=== PATIENT | female | born 1995 | race Caucasian/White ===

== ENCOUNTER 2016-12-01 08:35 | Outpatient (CLI) | payer BC, OTHER ==
[2016-12-01 10:00] LABS: APPEARANCE,URINE SLIGHTLY-CLOUDY; BILIRUBIN,URINE NEGATIVE (NEGATIVE); GLUCOSE, URINE NEGATIVE (NEGATIVE); KETONES,URINE NEGATIVE (NEGATIVE); LEUKOCYTE ESTERASE,URINE NEGATIVE (NEGATIVE); NITRITE,URINE NEGATIVE (NEGATIVE); PROTEIN,URINE NEGATIVE (NEGATIVE); URINE SPECIFIC GRAVITY 1.011; UROBILINOGEN,URINE NEGATIVE mg/dL (<2.0)
[2016-12-01 10:24] LABS: URINE BARBITURATES SCREEN NEGATIVE; URINE METHADONE SCREEN NEGATIVE; URINE OPIATES LOW NEGATIVE; URINE PHENCYCLIDINE SCREEN NEGATIVE
--- NOTE | 2016-12-01 10:43 | Non Stress Test Report ---
Non Stress Test Datetime Report Generated by CPN: 12/01/2016 10:43 DEMOGRAPHIC EGA NST: 36.4 INDICATION Indication for Study: Ordered by Provider MONITORING Monitor Explained: Monitor Explained; Test Explained; Patient Verbalized Understanding Time on Monitor: 12/01/2016 09:42 Time off Monitor: 12/01/2016 10:25 NST Duration: 43 NST INTERVENTIONS NST Interventions: PO Hydration; Reposition Patient Physician Notified NST: Dr. Bud BABY A: [id number] BABY A Movement : Present Contraction Frequency : 0 FHR Baseline : 135 Accelerations : 15X15 Decelerations : None Variability : Moderate 6-25bpm NST Review: Meets Criteria for Reactive NST NST Review and Verified By : BENI Wright Results: Reactive NST REPORT Report Trigger: Send Report
== END 2016-12-01 10:30 | disposition home or self-care (01) ==
LOC: LC 08:35
PROVIDERS: ATTEND Specialist
PROC: 4A1HXCZ Monitoring of Products of Conception, Cardiac Rate, External Approach (ICD-10-PCS; principal; 2016-12-01)
DX: O47.03 False labor before 37 completed weeks of gestation, third trimester (principal); Z3A.36 36 weeks gestation of pregnancy
CPT/HCPCS: 59025; 80307; 81005

== ENCOUNTER 2016-12-14 10:58 | Outpatient (CLI) | payer OTHER ==
--- NOTE | 2016-12-14 11:36 | Non Stress Test Report ---
Non Stress Test Datetime Report Generated by CPN: 12/14/2016 11:35 DEMOGRAPHIC EGA NST: 38.3 INDICATION Indication for Study: Ordered by Provider Indication for Study (NST) Other: repeat nst VITAL SIGNS Temperature - NST: 97.7 Pulse - NST: 99 RESP - NST: 18 NBPSYS NST: 130 NBPDIA NST: 64 (Annotations: Data stored by CPN on behalf of user) MONITORING Monitor Explained: Monitor Explained; Test Explained; Patient Verbalized Understanding Time on Monitor: 12/14/2016 11:08 Time off Monitor: 12/14/2016 11:33 NST Duration: 25 NST INTERVENTIONS NST Interventions: None Physician Notified NST: Dr Starkey BABY A: [id number] BABY A Movement : Present Contraction Frequency : none FHR Baseline : 150 Accelerations : 15X15 Decelerations : None Variability : Moderate 6-25bpm NST Review: Meets Criteria for Reactive NST NST Review and Verified By : Ryne Goetz RN NST Results: Reactive NST REPORT Report Trigger: Send Report
== END 2016-12-14 11:37 | disposition home or self-care (01) ==
LOC: LC 10:58
PROVIDERS: ATTEND Obstetrics & Gynecology
PROC: 4A1HXCZ Monitoring of Products of Conception, Cardiac Rate, External Approach (ICD-10-PCS; principal; 2016-12-14)
DX: Z34.93 Encounter for supervision of normal pregnancy, unspecified, third trimester (principal)
CPT/HCPCS: 59025

== ENCOUNTER 2016-12-17 10:56 | Inpatient (IN) | payer BC, OTHER ==
[2016-12-22] MEDS ORDERED: DINOPROSTONE 10 MG VAGINAL INSERT.SR PV PRN (18:15)
[2016-12-22 18:46] LABS: APPEARANCE,URINE CLOUDY; BILIRUBIN,URINE NEGATIVE (NEGATIVE); GLUCOSE, URINE NEGATIVE (NEGATIVE); KETONES,URINE NEGATIVE (NEGATIVE); LEUKOCYTE ESTERASE,URINE TRACE (NEGATIVE); NITRITE,URINE NEGATIVE (NEGATIVE); PROTEIN,URINE NEGATIVE (NEGATIVE); URINE SPECIFIC GRAVITY 1.017; UROBILINOGEN,URINE NEGATIVE mg/dL (<2.0)
[2016-12-22 18:51] LABS: ABSOLUTE BASOPHILS # (AUTO) 0.1 10^3/uL (0.0-0.2); ABSOLUTE EOSINOPHILS # (AUTO) 0.1 10^3/uL (0.0-0.6); ABSOLUTE LYMPHOCYTES (AUTO) 1.9 10^3/uL (0.5-4.7); ABSOLUTE MONOCYTES (AUTO) 0.7 10^3/uL (0.1-1.4); BASOPHILS % (AUTO) 0.7 % (0-2); EOSINOPHILS % (AUTO) 0.9 % (0-6); HEMATOCRIT 31.4 % (36.0-47.0); HEMOGLOBIN 10.4 g/dL (12.0-15.5); HGB HCT DIFFERENCE -0.2; LYMPHOCYTES % (AUTO) 17.3 % (13-45); MEAN CORPUSCULAR HEMOGLOBIN 24.6 pg (27.0-33.4); MEAN CORPUSCULAR VOLUME 75 fl (80-97); MONOCYTES % (AUTO) 6.8 % (3-13); RED BLOOD COUNT 4.22 10^6/uL (3.72-5.28); RED CELL DISTRIBUTION WIDTH 16.8 % (11.5-14.0); SEGMENTED NEUTROPHILS % (AUTO) 74.3 % (42-78); WHITE BLOOD COUNT 10.7 10^3/uL (4.0-10.5)
[2016-12-22] MEDS ORDERED: DINOPROSTONE 10 MG VAGINAL INSERT.SR ONE (19:05)
[2016-12-22 19:08] LABS: URINE BARBITURATES SCREEN NEGATIVE; URINE METHADONE SCREEN NEGATIVE; URINE OPIATES LOW NEGATIVE; URINE PHENCYCLIDINE SCREEN NEGATIVE
[2016-12-23] MEDS: RINGERS SOLUTION,LACTATED 1,000 ML IV PRN ×2 (06:30→21:15)
[2016-12-23] MEDS ORDERED: MISOPROSTOL 0.1 MG TABLET PO ONE (08:15)
[2016-12-23] MEDS ORDERED: MISOPROSTOL 0.1 MG TABLET ONE ×2 (08:32→12:46)
[2016-12-23] MEDS ORDERED: DINOPROSTONE 10 MG VAGINAL INSERT.SR ONE (18:49)
[2016-12-24] MEDS ORDERED: OXYTOCIN/NORMAL SALINE 20 UNIT/1,000 ML RTUINJ ONE (10:16)
[2016-12-24] MEDS ORDERED: NALBUPHINE HCL INJ 10 MG/1 ML AMPULE ONE ×2 (10:16→13:58)
--- NOTE | 2016-12-24 11:19 | L&D Progress Notes ---
PROGRESS NOTES Datetime Report Generated by CPOwen: 12/24/2016 11:19 PROGRESS NOTE Impression: Normal Progression of Labor; Reassuring Heart Rate Procedures: Sterile Vag Exam Plan: Continue Present Management; Induction Informed Consent Obtained: Vaginal Delivery; Induction of Labor; Risks, Benefits and Alternatives Discussed Vital Signs : Within Normal Limits Comment: Pt has been IOL for A1GDM since 12/22 with cervidil placed and then no cervical change on 12/23 and cytotec given throughout the day. Cervidil given again last evening due to cvx unchanged and closed per report. Upon evaluation this am cvx 03/13/-3/post/med/to left and reviewed options for management. Cooks catheter placed and pt tolerated well. Nubain given for pain. Pt desires epidural at some point. Anesthesia notified of BMI and will eval with epidural when pt requests. EFW approx 8# - exam limited by habitus. no recent growth US in chart. CAT I FHR tracing. Reassuring FWB. WIll do Low dose pitocin with Cooks catheter. VAGINAL EXAM Dilatation: 1 Dilatation: 0 Effacement: 25 Effacement: 0 Station: -3 Station: -3 Contractions: irreg MEMBRANES Pooling: Negative Membranes: Intact Membranes: Intact FETUS A FHR - Baseline: 155 Monitoring: External US Variability: Moderate 6-25bpm Accelerations: 15X15 Decelerations: None FHR Category: Category I : 39.4 Estimated Weight (gm): 3900 Presentation: Vertex SIGNATURE SIGNATURE: [id number];[id number] SIGNATURE: [id number] SIGNATURE: [id number] SIGNATURE: [id number] Signature: with User ID: [email or web address]
--- NOTE | 2016-12-24 18:44 | L&D Progress Notes ---
PROGRESS NOTES Datetime Report Generated by SHAYY: 12/24/2016 18:44 PROGRESS NOTE Impression: Normal Progression of Labor; Reassuring Heart Rate Procedures: Sterile Vag Exam Plan: Continue Present Management; Induction; Cervical Ripening Informed Consent Obtained: Vaginal Delivery; Section Delivery; Induction of Labor; Risks, Benefits and Alternatives Discussed Vital Signs : Reviewed; Within Normal Limits Comment: 21yo at 39+6ega presented on 12/22/2016 for IOL due to A1GDM. TEDs/SCDs placed this am. BMI 46 - maternaly obesity. Cervidil placed on 12/22 overnight then cytotec during the day on 12/23. On 12/23 in evening cervidil placed again due to cervical dilation closed. Upon evaluation at my arrival this am 1cm and reviewed options with pt and cooks catheter placed. Pt has been on low dose pitocin since Cooks catheter placed at approx 1000 this am. Cvx exam now and both bulbs are out of cervix. Cooks catheter removed and cvx 4-5/50/-3. EFW on 12/18 was 7#15oz. Pelvis is unproven. No e/o active labor at this time. reviewed with pt plan for stop pitocin for pitocin break and allow to ambulate and eat. Then plan to restart pitocin in approx 2 hours to continue with cervical ripening. Reviewed with pt plan to not AROM until baby descends and closer to active labor. Pt and family verbalized understanding. VAGINAL EXAM Dilatation: 4 Effacement: 50 Station: -3 Contractions: irregular q 2 to 5 MEMBRANES Membranes: Intact FETUS A R - Baseline: 145 Monitoring: External US Variability: Moderate 6-25bpm Accelerations: 15X15 Decelerations: None FHR Category: Category I FETUS C SIGNATURE: [id number];[id number] Signature: with User ID: [email or web address]
--- NOTE | 2016-12-25 02:23 | L&D Progress Notes ---
PROGRESS NOTES Datetime Report Generated by SHAYY: 12/25/2016 02:23 PROGRESS NOTE Impression: Normal Progression of Labor Procedures: Sterile Vag Exam Plan: Continue Present Management; Induction; Cervical Ripening Informed Consent Obtained: Vaginal Delivery; Induction of Labor; Risks, Benefits and Alternatives Discussed Vital Signs : Reviewed; Within Normal Limits Comment: Pt with A1GDM and here since 12/22 evening for IOL. Cooks catheter came out at approx 1900 and pt has been on pitocin alone since then. Pt has been intermittently ambulating. Pitocin break taken when cooks catheter came out. Cvx now more mid position (was very posterior and to the left) however patient is still not in active labor. Membranes intact currently. GBS negative. Reviewed with patient plan for pitocin break one more time and during pitocin break allow to ambulate and will give 250ml D5LR and then restart pitocin at 10 and increase per protocol. Ok to have ambien as well - pt has had a prolonged IOL and not resting. reviewed with pt that hopefully after this baby will descend further and allow AROM safely and assist with entering active labor. REviewed concerns that baby could be too large for pelvis (although baby was only 7#15oz on 12/18) and section may be needed. Reassuring FWB at this time. EFW 7#15oz on 12/18 and pelvis feels adequate. VAGINAL EXAM Dilatation: 4 Effacement: 50 Station: -3 Contractions: q 1-4 FETUS A FHR - Baseline: 135 FETUS C SIGNATURE: [id number];14,[id number] Signature: with User ID: [email or web address]
[2016-12-25] MEDS ORDERED: ZOLPIDEM TARTRATE 5 MG TABLET PO ONE (02:40)
[2016-12-25] MEDS ORDERED: ZOLPIDEM TARTRATE 5 MG TABLET ONE (03:08)
--- NOTE | 2016-12-25 08:12 | L&D Progress Notes ---
PROGRESS NOTES Datetime Report Generated by CPN: 12/25/2016 08:12 PROGRESS NOTE Impression: Normal Progression of Labor Procedures: Artificial ROM; Sterile Vag Exam Plan: Continue Present Management; Induction Informed Consent Obtained: Vaginal Delivery; Induction of Labor; Risks, Benefits and Alternatives Discussed Vital Signs : Reviewed; Within Normal Limits Comment: D/w pt plan of care and need to achieve active labor. AROM performed and patient is aware that this now is a time clock. GBS negative. EFW 7#15oz on last eval. Pt is aware that if not able to achieve active labor that section would be indicated. Pt will notify nursing when she desires epidural VAGINAL EXAM Dilatation: 4 Effacement: 50 Station: -3 Contractions: q 2-6 MEMBRANES Membranes: Ruptured FETUS A FHR - Baseline: 135 Monitoring: External US Variability: Moderate 6-25bpm Accelerations: 15X15 Decelerations: Variable FHR Category: Category I FETUS C SIGNATURE: [id number];[id number] Signature: with User ID: [email or web address]
[2016-12-25] MEDS ORDERED: ONDANSETRON HCL INJ/PF 4 MG/2 ML SDV ONE ×3 (09:44→19:57)
[2016-12-25 11:38] LABS: ABSOLUTE BASOPHILS # (AUTO) 0.1 10^3/uL (0.0-0.2); ABSOLUTE LYMPHOCYTES (AUTO) 1.3 10^3/uL (0.5-4.7); ABSOLUTE MONOCYTES (AUTO) 0.7 10^3/uL (0.1-1.4); ABSOLUTE NEUT (AUTO) 11.1 10^3/uL (1.7-8.2); BASOPHILS % (AUTO) 0.7 % (0-2); EOSINOPHILS % (AUTO) 0.2 % (0-6); HEMATOCRIT 33.3 % (36.0-47.0); HGB HCT DIFFERENCE -0.3; LYMPHOCYTES % (AUTO) 9.6 % (13-45); MEAN CORPUSCULAR HEMOGLOBIN 24.6 pg (27.0-33.4); MEAN CORPUSCULAR HGB CONC 33.1 g/dL (32.0-36.0); MEAN CORPUSCULAR VOLUME 74 fl (80-97); MONOCYTES % (AUTO) 5.4 % (3-13); RED BLOOD COUNT 4.48 10^6/uL (3.72-5.28); RED CELL DISTRIBUTION WIDTH 16.9 % (11.5-14.0); SEGMENTED NEUTROPHILS % (AUTO) 84.1 % (42-78); WHITE BLOOD COUNT 13.2 10^3/uL (4.0-10.5)
[2016-12-25] MEDS ORDERED: EPHEDRINE SULFATE INJ 50 MG/1 ML AMPULE ONE (11:51)
[2016-12-25] MEDS ORDERED: FENTANYL CITRATE INJ/PF 100 MCG/2 ML AMPUL ONE ×3 (11:51→22:13)
[2016-12-25] MEDS ORDERED: BUPIVACAINE HCL 0.25 % INJ/PF (2.5 MG/1 ML) 30 ML VIAL ONE (11:52)
[2016-12-25] MEDS ORDERED: PHENYLEPHRINE HCL INJ/PF 10 MG/1 ML SDV ONE (11:52)
[2016-12-25] MEDS ORDERED: FENTANYL/BUPIVACAINE/NS/PF 200 MCG/100 ML RTUINJ EPI ONE (11:52)
--- NOTE | 2016-12-25 12:02 | L&D Progress Notes ---
PROGRESS NOTES Datetime Report Generated by CPN: 12/25/2016 12:01 PROGRESS NOTE Comment: OOB in BR, requesting epidural, Cat 1 strip FETUS C SIGNATURE: [id number];14,[id number] Assignment: Debbie Raymond MD Signature: with User ID: [email or web address] : with User ID: [email or web address]
[2016-12-25] MEDS ORDERED: OXYTOCIN/NORMAL SALINE 20 UNIT/1,000 ML RTUINJ ONE ×2 (12:40→19:57)
--- NOTE | 2016-12-25 15:18 | L&D Progress Notes ---
PROGRESS NOTES Datetime Report Generated by CPN: 12/25/2016 15:17 PROGRESS NOTE Plan: Continue Present Management Comment: Irreg uc's, Cat 1, comfortable with epidural FETUS A FHR - Baseline: 140 Variability: Moderate 6-25bpm Accelerations: 15X15 FHR Category: Category I : 39.5 FETUS C SIGNATURE: [id number];[id number] Assignment: Debbie Raymond MD Signature: with User ID: Goldie : with User ID: [email or web address]
[2016-12-25] MEDS ORDERED: METOCLOPRAMIDE HCL INJ/PF 10 MG/2 ML SDV ONE (17:32)
[2016-12-25] MEDS ORDERED: FAMOTIDINE INJ/PF 20 MG/2 ML SDV IV ONE (17:32)
[2016-12-25] MEDS ORDERED: CITRIC ACID/SODIUM CITRATE ORAL SOLN 15 ML UDCUP ONE (17:32)
[2016-12-25] MEDS ORDERED: SODIUM BICARBONATE 8.4% INJ 50 MEQ/50 ML DISP.SYRIN ONE ×2 (17:32→20:09)
[2016-12-25] MEDS ORDERED: LIDOCAINE 1.5%/EPINEPHRINE INJ-PF 30 ML SDV ONE (17:34)
[2016-12-25] MEDS ORDERED: AZITHROMYCIN INJ 500 MG VIAL IV ONE ×2 (19:44→19:52)
[2016-12-25] MEDS ORDERED: SIMETHICONE 80 MG TAB.CHEW PO PRN (19:48)
[2016-12-25] MEDS ORDERED: RINGERS SOLUTION,LACTATED 1,000 ML IV PRN (19:48)
[2016-12-25] MEDS ORDERED: OXYCODONE-ACETAMINOPHEN 5-325 MG TABLET PO PRN (19:48)
[2016-12-25] MEDS ORDERED: ACETAMINOPHEN 100 ML IV PRN (19:48)
[2016-12-25] MEDS ORDERED: DIPH/PERTUSS(ACELL)/TETANUS VAC/PF 0.5 ML SYR (>=10YO) IM PRN (19:48)
[2016-12-25] MEDS ORDERED: OXYTOCIN/NORMAL SALINE 20 UNIT/1,000 ML RTUINJ IV PRN (19:48)
[2016-12-25] MEDS ORDERED: PROMETHAZINE HCL INJ 25 MG/1 ML VIAL IV PRN (19:48)
[2016-12-25] MEDS ORDERED: HYDROMORPHONE HCL INJ/PF 2 MG/ML AMPULE IV PRN (19:48)
[2016-12-25] MEDS ORDERED: ACETAMINOPHEN 325 MG TABLET PO PRN (19:48)
[2016-12-25] MEDS ORDERED: MEASLES,MUMPS&RUBELLA VACC/PF 0.5 ML VIAL SUBCUT PRN (19:48)
[2016-12-25] MEDS ORDERED: CITRIC ACID/SODIUM CITRATE ORAL SOLN 15 ML UDCUP PO PRN (19:54)
[2016-12-25] MEDS ORDERED: OXYTOCIN 10 UNIT/ML VIAL ONE (19:57)
[2016-12-25] MEDS ORDERED: MISOPROSTOL 0.2 MG TABLET ONE (20:03)
[2016-12-25] MEDS ORDERED: BUPIVACAINE HCL 0.5 % INJ/PF 30 ML SDV ONE (20:09)
[2016-12-25] MEDS ORDERED: ACETAMINOPHEN 100 ML IV ONE (20:48)
[2016-12-25] MEDS ORDERED: MIDAZOLAM 2 MG/2 ML INJ ONE (20:54)
--- NOTE | 2016-12-25 21:23 | Operative Report ---
Operative Report DATE OF SURGERY: 12/25/16 PREOPERATIVE DIAGNOSIS: Failure to progress POSTOPERATIVE DIAGNOSIS: Same plus persistent occiput posterior OPERATION: Primary for low transverse uterine incision SURGEON: GALE REDDY ANESTHESIA: Epidural TISSUE REMOVED OR ALTERED: Placenta COMPLICATIONS: None ESTIMATED BLOOD LOSS: 250 cc INTRAOPERATIVE FINDINGS: Viable baby girl Apgars 8 9 direct OP presentation. Normal uterus tubes and ovaries PROCEDURE: Ms. Napier has progressed approximately 5 cm and not changed beyond this for several hours despite Pitocin at 30 mU/min and a intrauterine pressure catheter. Because of the failure to progress we elected to proceed with section. Patient was taken to the OR and placed in supine position after her spinal anesthesia. She is prepared and draped in sterile fashion. Alford was placed for drainage of the bladder. Low transverse incision was made and carried down the level of the fascia. The fascial incision was made with knife and extended bilaterally with curved Faustin scissors. The fascia was off the rectus muscles using sharp and blunt dissection. The rectus muscles are in the midline. The peritoneum was entered without incident. Bladder blade was placed in uterine segment was identified. A low transverse incision was made creating a bladder flap. Bladder blade was placed low transverse uterine incision was made with the csafe knife and extended with fingertips. The baby was delivered with some fundal pressure. Mouth and nose were suctioned free. The cord is doubly clamped and cut. Baby is passed off to the field marketing specialist in attendance. The placenta was manually extracted with trailing membranes. The uterus was externalized wrapped in a moist lap sponge. Uterine contents wiped free. Uterus was closed with a running locking layer of 0 chromic suture using the second layer to imbricate the first completing a double layer closure of the uterus. The serosa was closed with a running 2-0 chromic stitch. The pelvis was irrigated and suctioned free of fluid the uterus was replaced in the abdomen. The abdominal wall peritoneum was closed with running 2-0 chromic stitch. Fascia was closed with a running 0 Vicryl in 2 segments. Alda's layer was brought together with 0 plain gut stitch and the skin was closed with running subcuticular 4-0 undyed Vicryl stitch. The wound was dressed mother and baby did well.
[2016-12-25] MEDS ORDERED: KETOROLAC TROMETHAMINE INJ/PF 30 MG/1 ML SDV IV SCH (22:00)
[2016-12-25] MEDS ORDERED: IBUPROFEN 800 MG TABLET ONE (22:56)
--- NOTE | 2016-12-25 23:28 | Admission Physical ---
Datetime Report Generated by CPN: 12/25/2016 23:27 CURRENT ADMISSION Chief Complaint: Scheduled Induction of Labor Indication for Induction: Maternal Diabetes Indication for Induction: Induction of Labor Admit Plan: Admit to Unit; Initiate Labor Induction Protocol ALLERGIES Medication Allergies: Yes Medication Allergies: cephalexin/Hives (12/23/2016) Medication Allergies: cephalexin/Hives (12/18/2016) Medication Allergies: cephalexin (12/01/2016) Latex: No Latex Allergies Food Allergies: n/a Environmental Allergies: n/a OBSTETRICAL HISTORY EDC: 12/25/2016 00:00 : 1 Para: 0 Term: 0 : 0 SAB: 0 IAB: 0 Ectopic: 0 Livin Cesareans: 0 VBACs: 0 Multiple Births: 0 Gestational Diabetes: Yes Rh Sensitization: No Incompetent Cervix: No MARU: No Infertility: No ART Treatment: No Uterine Anomaly: No IUGR: No Hx Previous C/S: No Macrosomia: No Hx Loss/Stillborn: No PIH: No Hx : No Placenta Previa/Abruption: No Depression/PP Depression: No PTL/PROM: No Post Hemorrhage: No Current Procedures: Ultrasound Obstetrical History Comments: G1- Current GDM diet controlled SEE RECORDS Alcohol: No Marijuana : No Cocaine: No Other Illicit Drugs: No Cigarettes: Never Smoker. [id number] MEDICAL HISTORY Diabetes: Yes Diabetes Type: Gestational Diabetes Blood Transfusion: No Pulmonary Disease (Asthma, TB): Yes Breast Disease: No Hypertension: No Optomechanical Engineer Surgery: No Heart Disease: No Hosp/Surgery: Yes Autoimmune Disorder: No Anesthetic Complications: No Kidney Disease: No Abnormal Pap Smear: No Neuro/Epilepsy: No Psychiatric Disorders: No Other Medical Diseases: No Hepatitis/Liver Disease: No Significant Family History: No Varicosities/Phlebitis: No Trauma/Violence : No Thyroid Dysfunction: No Medical History Comments: Childhood exercised induced asthma appendectomy age 13 INFECTIOUS HISTORY Gonorrhea: No Genital Herpes: No Chlamydia: No Tuberculosis: No Syphilis: No Hepatitis: No HIV/AIDS Exposure: No Rash or Viral Illness: No HPV: No PHYSICAL EXAM General: Normal HEENT: Normal Neurologic: Normal Thyroid: Normal Heart: Normal Lungs: Normal Breast: Normal Back: Normal Abdomen: Normal Genitourinary Exam: Normal Extremities: Normal DTRs: Normal Pelvic Type: Adequate Vital Signs: Reviewed VAGINAL EXAM Dilatation: 4 Dilatation: 4 Dilatation: 4 Dilatation: 1 Dilatation: 0 Effacement: 50 Effacement: 50 Effacement: 50 Effacement: 25 Effacement: 0 Station: -3 Station: -3 Station: -3 Station: -3 Station: -3 Contraction Comments: q 2-6 Contraction Comments: q 1-4 Contraction Comments: irregular q 2 to 5 Contraction Comments: irreg MEMBRANES Pooling: Negative Membranes: Ruptured Membranes: Intact Membranes: Intact Membranes: Intact FETUS A EGA: 39.4 Monitoring: External US FHR- Baseline: 130 Variability: Moderate 6-25bpm Accelerations: 15X15 Decelerations: None FHR Category: Category I Estimated Weight (gm): 3900 Presentation: Vertex PLANS FOR LABOR AND DELIVERY Labor and Delivery: Plan Pain Management: Medications Feeding Preference: Breast Benefit of Breast Feed Discussed: Yes Circumcision: N/A INFORMED CONSENT Informed Consent Obtained: Vaginal Delivery; Induction of Labor; Risks, Benefits and Alternatives Discussed Informed Consent Obtained: Vaginal Delivery; Induction of Labor; Risks, Benefits and Alternatives Discussed Informed Consent Obtained: Vaginal Delivery; Section Delivery; Induction of Labor; Risks, Benefits and Alternatives Discussed Informed Consent Obtained: Vaginal Delivery; Induction of Labor; Risks, Benefits and Alternatives Discussed Signature: with User ID: [email or web address]
--- NOTE | 2016-12-25 23:43 | Delivery Summary ---
Del Sum A-C Datetime Report Generated by CPN: 12/25/2016 23:43 DELIVERY PERSONNEL DELIVERY PERSONNEL: [id number] Delivery Doctor:: Debbie Raymond MD INSURANCE PROFESSIONAL:: Willi Israel INSURANCE PROFESSIONAL Labor and Delivery Nurse:: Natalie Ron RNmeasurement psychologist Nurse:: Jaimee Faria RN Nursery Nurse:: Samaria Sarah RN Projection Camera Operator/SEXUAL ASSAULT COUNSELLOR: Magaly Bangura, FIELD ASSOCIATE Projection Camera Operator/SEXUAL ASSAULT COUNSELLOR: Alesha Warner, ST Additional Personnel: : Adalberto Graham, SEXUAL ASSAULT COUNSELLOR MATERNAL INFORMATION Delivery Anesthesia: Epidural Medications After Delivery: Pitocin Drip 20 Units/1000ml NSS Estimated Blood Loss (ml): 600 Maternal Complications: Other Other Maternal Complications: failed induction LABOR SUMMARY EDC: 12/25/2016 00:00 No. Babies in Womb: 1 Attempted: No Labor Anesthesia: Epidural LABOR INFORMATION Cervical Ripening Agents: Cervidil Other Ripening Agents: cervidil removed Oxytocin: Induction Group B Beta Strep: Negative Antibiotics # of Doses: N/A Antibiotics Time of Last Dose: N/A Name of Antibiotic Given: N/A Steroids Given: None Reason Steroids Not Administered: Not Applicable MEMBRANES Membranes Rupture Method: Artificial Rupture of Membranes: 12/25/2016 08:01 Length of Rupture (hr): 12.68 Amniotic Fluid Color: Clear Amniotic Fluid Amount: Moderate Amniotic Fluid Odor: Normal STAGES OF LABOR Stage 3 hr: 0 Stage 3 min: 0 VAGINAL DELIVERY Episiotomy: None Laceration #1: None Laceration Extension #1: N/A Laceration Repair: Not Applicable Sponge Count Correct: Yes Sharps Count Correct: Yes CSECTION DELIVERY Primary Indication: Failed Induction Secondary Indication: Failure to progress CSection Urgency: Non-Scheduled CSection Incidence: Primary Labor: Labor Elective: Nonelective CSection Incision: Lower Uterine Transverse BABY A INFORMATION Infant Delivery Date/Time: 12/25/2016 20:42 Method of Delivery: Born in Route : No : N/A Forceps: N/A Vacuum Extraction: N/A Shoulder Dystocia : No PRESENTATION/POSITION BABY A Presentation: Cephalic Breech Presentation: N/A PLACENTA INFORMATION BABY A Placenta Delivery Time : 12/25/2016 20:42 Placenta Method of Delivery: Expressed Placenta Status: Delivered SCORES BABY A Heart Rate 1 min: >100 bpm Resp Effort 1 min: Good Cry Reflex Irritability 1 min: Cough or Sneeze or Pulls Away Muscle Tone 1 min: Active Motion Color 1 min: Blue/Pale SCORE 1 MIN: 8 Heart Rate 5 min: >100 bpm Resp Effort 5 min: Good Cry Reflex Irritability 5 min: Cough or Sneeze or Pulls Away Muscle Tone 5 min: Active Motion Color 5 min: Body [place], Extremities Blue SCORE 5 MIN: 9 INFANT INFORMATION BABY A Gestational Age at Delivery: 40.0 Gestational Status: Full Term- 39- 40.6 Weeks Infant Outcome : Liveborn Infant Condition : Stable Sex: Female IDENTIFICATION BABY A Infant Verification Date/Time: 12/25/2016 20:55 ID Band Number: [id number] Mother's Name Verified: Yes RN Verifying : B Jayson, RN Additional Verifying Personnel: R Ertel, SEXUAL ASSAULT COUNSELLOR WEIGHT/LENGTH BABY A Infant Birthweight (gm): 3490 Infant Weight (lb): 7 Infant Weight (oz): 11 Infant Length (in): 20.50 Infant Length (cm): 52.07 CORD INFORMATION BABY A No. Cord Vessels: 3 Nuchal Cord : N/A Cord Blood Taken: Yes-For Eval (Mom's Blood Type - or O+) Suction: Mouth; Nose ASSESSMENT BABY A Skin to Skin: Yes Skin to Skin Time (min): 60 Care By: Samaria Bryant RN Transferred To: Nursery BABY B INFORMATION : N/A
[2016-12-26] MEDS: RINGERS SOLUTION,LACTATED 1,000 ML IV PRN ×3 (00:32→09:59)
[2016-12-26] MEDS: OXYCODONE-ACETAMINOPHEN 5-325 MG TABLET PO PRN ×3 (00:42→19:50)
[2016-12-26] MEDS: KETOROLAC TROMETHAMINE INJ/PF 30 MG/1 ML SDV IV SCH ×3 (05:48→21:40)
[2016-12-26] MEDS ORDERED: RINGERS SOLUTION,LACTATED 500 ML IV ONE (06:30)
[2016-12-26 07:47] LABS: HEMATOCRIT 23.9 % (36.0-47.0); HGB HCT DIFFERENCE -0.2; MEAN CORPUSCULAR HEMOGLOBIN 24.8 pg (27.0-33.4); MEAN CORPUSCULAR HGB CONC 32.9 g/dL (32.0-36.0); MEAN CORPUSCULAR VOLUME 75 fl (80-97); RED BLOOD COUNT 3.18 10^6/uL (3.72-5.28); RED CELL DISTRIBUTION WIDTH 17.1 % (11.5-14.0); WHITE BLOOD COUNT 11.5 10^3/uL (4.0-10.5)
[2016-12-26 07:52] LABS: HEMOGLOBIN 7.9 g/dL (12.0-15.5)
[2016-12-26] MEDS: DOCUSATE SODIUM 100 MG CAPSULE PO SCH ×2 (09:57→17:53)
[2016-12-26] MEDS: PRENATAL VITAMIN W-O CA NO5/FE FUMARATE/FA CAPSULE PO SCH (09:57)
--- NOTE | 2016-12-26 11:07 | PDOC PROGRESS REPORT ---
Subjective-OB Subjective: Post Delivery Day: 21 year old. Denies any needs at this time. Pt doing well, denies pain. Has not been OOB yet. Reports normal bleeding and regular diet. Physical Exam (OB) Vital Signs: Temp Pulse Resp BP Pulse Ox 98.5 F 73 20 123/55 L 97 12/26/16 08:02 12/26/16 08:02 12/26/16 08:02 12/26/16 08:02 12/26/16 08:02 Intake & Output 12/25/16 12/26/16 12/27/16 06:59 06:59 06:59 Output Total 425 Balance -425 - Dressing Removed: No Incision: Dressing - Lochia Lochia Amount: Small 10-25 ml Lochia Color: Rubra/Red - Abdomen Description: Soft, Round Hernia Present: No Fundal Description: Firm, Midline Fundal Height: u/u - u/2 Objective-Diagnostic Laboratory: 12/26/16 06:52 12/25/16 12/25/16 12/26/16 11:27 11:27 06:52 WBC 13.2 H 11.5 H RBC 4.48 3.18 L Hgb 11.0 L 7.9 L D Hct 33.3 L 23.9 L MCV 74 L 75 L MCH 24.6 L 24.8 L MCHC 33.1 32.9 RDW 16.9 H 17.1 H Plt Count 304 254 Seg Neutrophils % 84.1 H Lymphocytes % 9.6 L Monocytes % 5.4 Eosinophils % 0.2 Basophils % 0.7 Absolute Neutrophils 11.1 H Absolute Lymphocytes 1.3 Absolute Monocytes 0.7 Absolute Eosinophils 0.0 Absolute Basophils 0.1 Blood Type B NEGATIVE Antibody Screen NEGATIVE 12/26/16 06:52 WBC RBC Hgb Hct MCV MCH MCHC RDW Plt Count Seg Neutrophils % Lymphocytes % Monocytes % Eosinophils % Basophils % Absolute Neutrophils Absolute Lymphocytes Absolute Monocytes Absolute Eosinophils Absolute Basophils Blood Type B NEGATIVE Antibody Screen Assessment and Plan(PN) - Assessment and Plan (1) delivery delivered Is this a current diagnosis for this admission?: Yes - Time Spent with Patient Time with patient: Less than 15 minutes Medications reviewed and adjusted accordingly: Yes - Disposition Anticipated Discharge: Home Within: within 48 hours
[2016-12-26] MEDS ORDERED: IBUPROFEN 800 MG TABLET PO SCH (18:00)
[2016-12-27] MEDS: IBUPROFEN 800 MG TABLET PO SCH ×3 (05:17→17:05)
[2016-12-27] MEDS: OXYCODONE-ACETAMINOPHEN 5-325 MG TABLET PO PRN ×2 (08:22→17:05)
[2016-12-27] MEDS: PRENATAL VITAMIN W-O CA NO5/FE FUMARATE/FA CAPSULE PO SCH (10:14)
[2016-12-27] MEDS: DOCUSATE SODIUM 100 MG CAPSULE PO SCH ×2 (10:14→17:05)
--- NOTE | 2016-12-27 12:51 | PDOC PROGRESS REPORT ---
Subjective-OB Subjective: Post Delivery Day: 21 year old. Denies any needs at this time. Requesting discharge later today. Physical Exam (OB) Vital Signs: Temp Pulse Resp BP Pulse Ox 98.1 F 79 16 120/67 98 12/27/16 08:59 12/27/16 08:59 12/27/16 08:59 12/27/16 07:42 12/27/16 08:59 Intake & Output 12/26/16 12/27/16 12/28/16 06:59 06:59 06:59 Intake Total 2500 300 Output Total 425 Balance -425 2500 300 - Dressing Removed: No Incision: Dressing, Well Approximated - Lochia Lochia Amount: Scant < 10 ml Lochia Color: Rubra/Red - Abdomen Description: Soft, Round Hernia Present: No Bowel Sounds: Normoactive Flatus Presence: Present Stool: No Fundal Description: Firm, Midline Fundal Height: u/u - u/2 Objective-Diagnostic Laboratory: 12/26/16 06:52 12/26/16 06:52 Blood Type B NEGATIVE Assessment and Plan(PN) - Time Spent with Patient Medications reviewed and adjusted accordingly: Yes - Disposition Anticipated Discharge: Home
--- NOTE | 2016-12-27 13:04 | PDOC DISCHARGE SUMMARY ---
Final Diagnosis Discharge Date: 12/27/16 - Final Diagnosis (1) delivery delivered Is this a current diagnosis for this admission?: Yes (2) Failure to progress in labor Is this a current diagnosis for this admission?: Yes (3) GDM (gestational diabetes mellitus) Is this a current diagnosis for this admission?: Yes (4) Obesity Is this a current diagnosis for this admission?: Yes Discharge Data - Discharge Medication Home Medications: Vit/Iron Fum/Folic AC [ Tablet] 1 each PO DAILY 12/01/16 Docusate Sodium [Colace 100 mg Capsule] 100 mg PO BID #30 capsule 12/27/16 Ferrous Sulfate 325 mg PO BID #60 tablet. 12/27/16 Ibuprofen [Motrin 800 mg Tablet] 800 mg PO Q6 #30 tablet 12/27/16 Oxycodone HCl/Acetaminophen [Percocet 5-325 mg Tablet] 1 tab PO Q4HP PRN #20 tablet 12/27/16 Gestational Age: 39 wks Reason(s) for Admission: Induction of Labor, Gestional Diabetes Procedures: Ultrasound Intrapartum Procedure(s): : Low Cervical, Transverse - Data Baby 1 Female at 1 minute: 8 at 5 minutes: 9 Weight: 3.487 kg Home with Mother: Yes Complications: No - Diagnosis Test Laboratory: Temp Pulse Resp BP Pulse Ox 98.1 F 79 16 120/67 98 12/27/16 08:59 12/27/16 08:59 12/27/16 08:59 12/27/16 07:42 12/27/16 08:59 12/22/16 12/22/16 12/25/16 18:21 18:39 11:27 RBC 4.22 4.48 Hgb 10.4 L 11.0 L Hct 31.4 L 33.3 L Urine Opiates Screen NEGATIVE 12/26/16 06:52 RBC 3.18 L Hgb 7.9 L D Hct 23.9 L Urine Opiates Screen - Discharge information/Instructions Discharge Activity: Activity As Tolerated, Balance Activity w/Rest, No Driving, No Lifting Over 10 Pounds, No Lifting/Push/Pulling, Pelvic Rest, Slowly Increase Activity, No tub bath Discharge Diet: Regular Disposition: HOME, SELF-CARE Follow up with: [facility] in: 1, Weeks
[2016-12-27 16:42] VITALS: BP 118/61
== END 2016-12-27 18:13 | disposition home or self-care (01) | DRG 765 ==
LOC: LR 12-22 18:13 → 2S 12-25 23:20
PROVIDERS: ADMIT Obstetrics & Gynecology; ATTEND Obstetrics & Gynecology
PROC: 10D00Z1 Extraction of Products of Conception, Low, Open Approach (ICD-10-PCS; principal; 2016-12-25)
PROC: 3E0234Z Introduction of Serum, Toxoid and Vaccine into Muscle, Percutaneous Approach (ICD-10-PCS; 2016-12-27)
PROC: 3E0234Z Introduction of Serum, Toxoid and Vaccine into Muscle, Percutaneous Approach (ICD-10-PCS; 2016-12-27)
DX: O36.0930 Maternal care for other rhesus isoimmunization, third trimester, not applicable or unspecified (principal); Z68.42 Body mass index [BMI] 45.0-49.9, adult; O61.0 Failed medical induction of labor; O24.420 Gestational diabetes mellitus in childbirth, diet controlled; O64.0XX0 Obstructed labor due to incomplete rotation of fetal head, not applicable or unspecified; O99.214 Obesity complicating childbirth; E66.9 Obesity, unspecified; Z3A.39 39 weeks gestation of pregnancy; Z37.0 Single live birth; Z23 Encounter for immunization
CPT/HCPCS: 1961; 36415; 80307; 81005; 85025; 85027; 85461; 86592; 86850; 86900; 86901; 90707; C1726; J0131; J0456; J1170; J1885; J2250; J2300; J2370; J2405; J2590; J2765; J2790; J3010; J3490; J7120; S0028